=== PATIENT | female | born 1980 | race Two or more races ===

== ENCOUNTER 2019-07-16 14:41 | Emergency (ER) | payer BC ==
[~2019-07-16] VITALS: Ht 149.9 cm; Wt 48.5 kg
[2019-07-16 15:11] VITALS: BP_SYST 163
--- NOTE | 2019-07-16 15:14 | NUR ---
PATIENT PRESENTS TO THE ER WITH HX OF NAUSEA WITH DIZZINESS AND HEAD PAIN FOR TWO DAYS; NO TRAUMA, NO OTHER REMARKABLE S/S; PATIENT TO ER #6 AT 1500 WITH MANAGER RESORT AND SAO2
[2019-07-16] MEDS ORDERED: KETOROLAC TROMETHAMINE 60 MG/2 ML VIAL IM ONE (15:15)
[2019-07-16] MEDS ORDERED: PROCHLORPERAZINE EDISYLATE 10 MG/2 ML VIAL IM ONE (15:15)
[2019-07-16] MEDS ORDERED: cloNIDine HCL 0.1 MG TABLET PO ONE (15:30)
--- NOTE | 2019-07-16 15:30 | NUR ---
ER at bedside examining patient.
--- NOTE | 2019-07-16 15:45 | NUR ---
patient bib spouse cc of headache, nausea and dizziness for 2 days. blood pressure is also elevated, per pt usually normal at home. denies taking htn medication. afebrile. no other concerned noted.
--- NOTE | 2019-07-16 15:50 | NUR ---
pain medication, anti nausea and blood pressure meds administered.
--- NOTE | 2019-07-16 17:18 | NUR ---
Patient given written and verbal discharge instructions and verbalizes understanding. ER MD Messina discussed with patient the results and treatment provided. Patient in stable condition. ID arm band removed. Rx of Lopressor, Tramadol given. Patient educated on pain management and to follow up with PMD. Pain Scale 0. Opportunity for questions provided and answered. Medication side effect fact sheet provided.
[2019-07-16 17:19] VITALS: BP_SYST 121
== END 2019-07-16 17:19 | disposition home or self-care (01) ==
LOC: SED 14:41
DX: G44.209 Tension-type headache, unspecified, not intractable (principal); I16.0 Hypertensive urgency
CPT/HCPCS: 96372; 99283; J0780; J1885

== ENCOUNTER 2020-02-04 12:27 | Emergency (ER) | payer BC ==
[~2020-02-04] VITALS: Ht 147.3 cm; Wt 48.1 kg
[2020-02-04 12:39] VITALS: BP_SYST 135
--- NOTE | 2020-02-04 12:46 | NUR ---
Patient to ER bed 4 to gown for evaluation. Side rails up. Report given to NAOMIE DOHERTY.
--- NOTE | 2020-02-04 12:50 | NUR ---
Patient presented to ER C/O abdominal pain. Patient A&Ox4, ambulatory to ER, afebrile, pain 12/25, denies N/V/D. Patient states she has epigastric pain radiating to back x7 days, decreased appetite; PO mylanta to day with improvement in pain.
--- NOTE | 2020-02-04 12:52 | NUR ---
ER at bedside examining patient.
--- NOTE | 2020-02-04 12:52 | NUR ---
Note margo in [facility] - 02/04/20 at 1252 by [email or web address] [facility] [place] [id number] [facility] Side rails up.
--- NOTE | 2020-02-04 13:52 | NUR ---
Note margo in ED - 02/04/20 at 1431 by SDEDTD Patient will be admitted to care of DR LUNA. Admitted to TELE unit. Will go to room 120B. Belongings list completed. Complete and up to date summary report printed. SBAR report to be given at bedside with opportunity for questions.
--- NOTE | 2020-02-04 13:53 | NUR ---
Note margo in ED - 02/04/20 at 1431 by SDEDTD Transfer to [facility] via [facility] protocol. Licensed nurse present. IV present no signs or symptoms of infiltration.
--- NOTE | 2020-02-04 14:15 | NUR ---
PER RADIOLOGY,THEY WILL COMPLETE US.
--- NOTE | 2020-02-04 14:50 | NUR ---
PT ambulatory to ultrasound WITH RADIOLOGY STAFF
--- NOTE | 2020-02-04 15:40 | NUR ---
Patient given written and verbal discharge instructions and verbalizes understanding. ER MD discussed with patient the results and treatment provided. Patient in stable condition. ID arm band removed. Rx of PRILOSEC given. Patient educated on pain management and to follow up with PMD. Pain Scale 3/10. Opportunity for questions provided and answered. Medication side effect fact sheet provided.
[2020-02-04 15:45] VITALS: BP_SYST 149
== END 2020-02-04 15:40 | disposition home or self-care (01) ==
LOC: SED 12:27
DX: K29.70 Gastritis, unspecified, without bleeding (principal); I10 Essential (primary) hypertension; G43.909 Migraine, unspecified, not intractable, without status migrainosus
CPT/HCPCS: 76705; 81002; 81025; 99284

== ENCOUNTER 2020-03-28 02:42 | Emergency (ER) | payer BC ==
[~2020-03-28] VITALS: Ht 149.9 cm; Wt 48.1 kg
[2020-03-28 03:15] VITALS: BP_SYST 133
--- NOTE | 2020-03-28 03:15 | NUR ---
Patient to ER bed 7 to gown for evaluation. Side rails up.
--- NOTE | 2020-03-28 03:16 | NUR ---
Patient came to ER with family. c/o Dizzness x today. Per patient reported, BP 76/44 at home, dizziness. A/O,X4, BP 133/63.
--- NOTE | 2020-03-28 03:20 | NUR ---
ER Dr. Ward at bedside examining patient.
[2020-03-28] MEDS ORDERED: METO25TA6 PO (03:30)
[2020-03-28] MEDS ORDERED: NACL 0.9% 1,000 ML IV ONE (03:45)
[2020-03-28 03:58] LABS: BASOPHILS % (AUTO) 0.9 % (0.0-2.0); EOSINOPHILS # (AUTO) 0.3 K/uL (0.0-0.4); EOSINOPHILS % (AUTO) 5.9 % (0.0-4.0); HEMATOCRIT 40.1 % (36-48); HEMOGLOBIN 13.6 g/dL (12.0-16.0); LYMPHOCYTES # (AUTO) 1.8 K/uL (1.0-5.5); MEAN CORPUSCULAR HEMOGLOBIN 30 pg (27-31); MEAN CORPUSCULAR HGB CONC 34 % (32-36); MEAN CORPUSCULAR VOLUME 87 fL (79.0-98.0); MONOCYTES # (AUTO) 0.3 K/uL (0.0-1.0); MONOCYTES % (AUTO) 5.4 % (1.7-9.3); NEUTROPHILS # (AUTO) 2.9 K/uL (1.8-7.7); NEUTROPHILS % (AUTO) 54.8 % (40.0-70.0); PLATELET COUNT (AUTO) 334 K/uL (130-430); RED BLOOD CELL COUNT(AUTO) 4.58 MIL/uL (4.2-6.2); RED CELL DISTRIBUTION WIDTH 12.6 % (9.0-15.0); WHITE BLOOD COUNT (AUTO) 5.4 K/uL (4.8-10.8)
[2020-03-28 04:11] LABS: ANION GAP 13 (5-15); CALCIUM 8.5 mg/dL (8.4-11.0); CHLORIDE 101 mmol/L (98-107); CREATININE 0.59 mg/dL (0.55-1.30); GLUCOSE 104 mg/dL (70-99); POTASSIUM 3.5 mmol/L (3.5-5.1); SODIUM SERUM 140 mmol/L (136-145); UREA NITROGEN, BLOOD 17 mg/dL (8-21)
[2020-03-28 04:20] LABS: ALANINE AMINOTRANSFERASE 33 U/L (12-78); ASPARTATE AMINOTRANSFERASE 17 U/L (10-37); TOTAL BILIRUBIN 0.2 mg/dL (0.0-1.0)
[2020-03-28 04:21] LABS: GFR AFRICAN AMERICAN 144 mL/min (>90)
[2020-03-28 04:46] LABS: BILIRUBIN,URINE NEGATIVE (NEGATIVE); BLOOD, URINE TRACE (NEGATIVE); CLARITY/URINE CLEAR (CLEAR); COLOR,URINE YELLOW (YELLOW); GLUCOSE,URINE NEGATIVE (NEGATIVE); KETONES,URINE NEGATIVE (NEGATIVE); LEUKOCYTE ESTERASE ,URINE NEGATIVE (NEGATIVE); NITRITE, URINE NEGATIVE (NEGATIVE); PH,URINE 6.5 (5.0-8.0); PROTEIN URINE NEGATIVE (NEGATIVE); UROBILINOGEN,URINE 0.2 (0.2-1.0)
[2020-03-28 04:48] LABS: BACTERIA,URINE FEW /HPF (None Seen); WBC,URINE 0-3 /HPF (0-3)
--- NOTE | 2020-03-28 04:55 | NUR ---
Patient transported to radiology via wheelchair, accompanied by RT.
--- NOTE | 2020-03-28 05:10 | NUR ---
Patient came back from CT scan.
[2020-03-28 05:52] VITALS: BP_SYST 133
== END 2020-03-28 05:52 | disposition home or self-care (01) ==
LOC: SED 02:42
DX: I21.9 Acute myocardial infarction, unspecified (principal); R42 Dizziness and giddiness; I10 Essential (primary) hypertension; G43.909 Migraine, unspecified, not intractable, without status migrainosus
CPT/HCPCS: 36415; 70450; 80053; 81000; 81025; 82550; 84484; 85025; 85379; 93005; 96360; 99285; J7030

== ENCOUNTER 2020-06-26 18:13 | Emergency (ER) | payer BC ==
[~2020-06-26] VITALS: Ht 160 cm; Wt 52.2 kg
[~2020-06-26 18:13] MED LIST: METO25TA6 PO
[2020-06-26 18:20] VITALS: BP_SYST 178
--- NOTE | 2020-06-26 18:37 | NUR ---
PT NOT IN TENT FOR DOCTOR ASSESMENT
--- NOTE | 2020-06-26 18:42 | NUR ---
PT LEFT WITHOUT BEING SEEN
== END 2020-06-26 18:42 | disposition left against medical advice (07) ==
LOC: SED 18:13
DX: F41.9 Anxiety disorder, unspecified (principal); Z53.21 Procedure and treatment not carried out due to patient leaving prior to being seen by health care provider